=== PATIENT | female | born 1945 | race Caucasian/White ===

== ENCOUNTER 2016-09-04 10:03 | Outpatient (CLI) | payer MEDICARE, BC ==
[2016-09-04 10:55] LABS: Anion Gap 12 mmol/L (10-20); BUN (Urea Nitrogen) 16 mg/dL (9.8-20.1); Calc. Creatinine Clearance 0 mL/min (70-130); Calcium 10.3 mg/dL (7.8-10.44); Carbon Dioxide 28 mmol/L (23-31); Chloride 103 mmol/L (98-107); Estimated GFR-MDRD 42; Glucose 76 mg/dL (83-110); Potassium 4.3 mmol/L (3.5-5.1); Sodium 139 mmol/L (136-145)
== END 2016-09-04 10:04 | disposition home or self-care (01) ==
LOC: MADLAB 10:03
PROVIDERS: ATTEND Internal Medicine Nephrology
DX: N25.81 Secondary hyperparathyroidism of renal origin (principal); N18.3 Chronic kidney disease, stage 3 (moderate); I10 Essential (primary) hypertension
CPT/HCPCS: 36415; 80048; 83970

== ENCOUNTER 2016-09-25 12:01 | Inpatient (IN) | payer MEDICARE, BC ==
[2016-09-25 12:27] LABS: #Basophils 0.1 thou/uL (0.0-0.2); #Eosinphils 0.1 thou/uL (0.0-0.7); #Lymphocytes 2.8 thou/uL (1.20-3.40); #Monocytes 1.6 thou/uL (0.11-0.59); #Neutrophils 15.1 thou/uL (1.40-6.50); %Basophils 0.6 % (0.0-1.0); %Eosinophils 0.3 % (0.0-10.0); %Lymphocytes 14.2 % (21.0-51.0); %Monocytes 7.9 % (0.0-10.0); %Neutrophils 76.9 % (42.0-75.0); Hemoglobin 13.5 g/dL (12.0-16.0); Mean Corpuscular HGB CONC 34.5 g/dL (32.0-36.0); Mean Corpuscular Hemoglobin 31.6 pg (27.0-31.0); Mean Corpuscular Volume 91.6 fl (81.0-99.0); Mean Platelet Volume 8.3 fL (7.4-10.4); Platelet Count 343 thou/uL (130-400); Red Blood Cell (RBC) Count 4.26 mill/uL (4.20-5.40); White Blood Cell (WBC) Count 19.7 thou/uL (4.8-10.8)
[2016-09-25 12:42] LABS: ALT (SGPT) 14 U/L (8-55); AST (SGOT) 16 U/L (5-34); Alkaline Phosphatase 101 U/L (40-150); Anion Gap 14 mmol/L (10-20); BUN (Urea Nitrogen) 10 mg/dL (9.8-20.1); Bilirubin, Total 0.9 mg/dL (0.2-1.2); CK (CPK) 54 U/L (29-168); Calc. Creatinine Clearance 0 mL/min (70-130); Calcium 10.2 mg/dL (7.8-10.44); Carbon Dioxide 27 mmol/L (23-31); Chloride 101 mmol/L (98-107); Estimated GFR-MDRD 50; Globulin 3.7 g/dL (2.4-3.5); Glucose 109 mg/dL (83-110); Magnesium 2.3 mg/dL (1.6-2.6); Phosphorus 2.2 mg/dL (2.3-4.7); Potassium 3.4 mmol/L (3.5-5.1); Protein, Total 7.7 g/dL (6.0-8.3); Sodium 139 mmol/L (136-145)
[2016-09-25 12:46] LABS: CKMB 0.4 ng/mL (0-6.6); Troponin I Less than 0.010 ng/mL (< 0.028)
--- NOTE | 2016-09-25 12:54 | RAD ---
AP CHEST: Indication: Cough. Comparison: 10-19-15 FINDINGS: There are patchy opacities within the right upper lobe and right lower lobe which may reflect change s of multifocal pneumonia. Two view chest radiograph would be helpful for improved localization. Lef t lung is clear. Cardiomediastinal silhouette is within normal limits. No acute osseous abnormality is evident. IMPRESSION: Right upper lobe, right lower lobe patchy opacities. Findings may reflect multifocal pneumonia. Ozzie mmend correlation. Radiographic follow up to resolution is recommended. Two view chest radiograph ma y be helpful for improved characterization. POS: [facility]
[2016-09-25] MEDS ORDERED: Levofloxacin 500 mg/D5W 100 ml Premix Bag ONE (13:07)
[2016-09-25] MEDS ORDERED: Ibuprofen 800 MG TAB ONE (13:12)
[2016-09-25 15:01] VITALS: BMI 27.8
[2016-09-25] MEDS ORDERED: Nitroglycerin 4.9 GM Bottle SL PRN (15:23)
[2016-09-25] MEDS: cloNIDine HCl 0.1 MG TAB PO SCH (21:15)
--- NOTE | 2016-09-26 01:05 | HP ---
CHIEF COMPLAINT: Fatigue. HISTORY OF PRESENT ILLNESS AND HOSPITAL COURSE: Ms. Montgomery is a 71-year-old female with significant history of hypertension, CAD with mild diastolic dysfunction, EF of 55% on 06/18/2013, history of seasonal allergies, dyslipidemia and GERD. The patient reports persistent and cold symptoms for the last 2 days. She went to the clinic on 09/24/2016 with cold symptoms associated with intermittent cough. The patient reports that initially was scant sputum production with febrile sensation. The patient also reports significant weight generalized weakness that she noted for the past 3 days associated with intermittent palpitations of the heart. She reports significant nasal congestion, runny nose and facial pressure. She reports history of seasonal allergies at that time. Patient received a Depo-Medrol shot at the clinic and was recommended close observation. At that time, her heart rate has been in the low 90s with O2 sats at 96%. The patient called back this morning and reporting that she has some shortness of breath intermittently even at the rest, cough is progressive and now with low grade fever. Her heart rate was reported at 99 beats per minute without significant chest pain, pain with breathing, bloody sputum, or heart palpitations. The patient was recommended to proceed to the ER for further evaluation. At the ER , initial evaluation showed vital signs of 178/94, pulse 93, respirations 20, temperature 97.7, O2 saturation 97% at room air. On further evaluation, patient 's lab work showed significant leukocytosis at 19.7 with significant evidence of pneumonia per chest x-ray. EKG was reported to have no significant acute ischemia. Cardiac enzymes are within normal limits and BNP was 163.7. Her O2 sats remains 97% on room air with no evidence of SIRS recorded. Medications given in the ER included oral ibuprofen and Levaquin 500 IV piggyback. Patient was admitted for inpatient management of community acquired pneumonia. When evaluated on the floor, patient appears was febrile at 102.4. Her O2 sat was 93 % at room air with a pulse rate of 92. Patient reports some dyspnea when talking for a while at rest. Denies chest pain, pain with breathing or orthopnea. Family represented by her son and sister were present at the time of evaluation. PAST MEDICAL HISTORY: Hypertension, dyslipidemia, GERD, mild CAD, seasonal allergies, history of rheumatic fever, colonoscopy 2008, echocardiogram 2013 with EF of 55%, mild LVH, mild MR, mild diastolic dysfunction. 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 ALLERGIES: ROBITUSSIN, rash; PNEUMONIA VACCINE, swelling. 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 PAST SURGICAL HISTORY: Partial hysterectomy in 1969, appendectomy 1978, right shoulder rotator cuff repair 2004, tonsillectomy in 1947, cardiac catheterization negative CAD by Dr. Jean Baptiste on 07/2006. PREVIOUS HOSPITALIZATION: Denies. FAMILY HISTORY: Father is . Mother is . Daughters alive, one son alive, one daughter alive. SOCIAL HISTORY: Patient is a nonsmoker, nondrinker, no illicit drug use. MEDICATIONS: Furosemide 40 mg p.o. daily, propranolol ER 80 mg daily, levothyroxine 112 mcg, amlodipine 10 mg p.o. daily, isosorbide mononitrate 30 mg p.o. daily, clonidine 0.1 mg p.o. once a day, atorvastatin 10 mg p.o. daily, aspirin EC 81 mg p.o. daily, Nitrolingual 0.4 spray solution, loratadine 10 mg p.o. daily. REVIEW OF SYSTEMS: General: Reports fever, chills, fatigue and general weakness, loss of appetite. HEENT: Reports runny nose, congestion, and cough. Respiratory: As per HPI. Cardiac: No chest pain, syncope, paroxysmal nocturnal dyspnea, reports WEBBER and intermittent dyspnea at rest. GI: No nausea , vomiting, abdominal pain, diarrhea, constipation. Genitourinary: No dysuria , hematuria, frequency, urgency. Musculoskeletal: No joint pains, joint swelling. Skin: No rashes, no lesions, no ulcers. Neuro: No syncopal episode , murmurs focal paralysis or paraesthesia. Psych: No depression, anxiety, hallucinations. LABORATORY AND X-RAY FINDINGS: White count 19.7, hemoglobin 13.5, hematocrit 39 , platelets 343, neutrophils 76.9, lymphocytes 14.2. Chemistry: Sodium 139, potassium 2.4, chloride 101, carbon dioxide 27, BUN 10, creatinine 1.07, anion gap 14, estimated GFR 50, glucose 109, phosphorus 2.2, magnesium 2.3. Liver function tests within normal limits, alkaline phosphatase 101, creatinine kinase 54, CK-MB 0.4, troponin one less than 0.010, BNP 163.7, albumin 4. Chest x-ray, right upper lobe, right lower lobe, patchy opacities, findings reflect multifocal pneumonia. ASSESSMENT: 1. Community-acquired pneumonia, multifocal. 2. Mild hypoxemia, O2 requiring. 3. Hypertension. 4. Dyslipidemia. 5. Mild CAD. 6. Mild diastolic dysfunction. 6. Gastroesophageal reflux disease. 7. Hypothyroidism. 8. Dyslipidemia. PLAN: The patient is admitted to Medical/Surgical for inpatient management of CAP. We will continue empiric IV antibiotic therapy pending cultures. We will continue home medications as modified per list. O2 to keep O2 sats 94 and above. Gastrointestinal prophylaxis with PPI. DVT prophylaxis with Lovenox. Further recommendations depending on the hospital course, this explained and discussed with the patient in the presence of her family the apparent clinical findings and diagnosis, treatment options and plan of care. All their questions were answered to their satisfaction. We will continue close monitoring of symptoms. At any time, patient showed some respiratory deterioration. We will transfer to tertiary hospital secondary to availability of ICU nor telemetry unit in our hospital. Verbalizes full understanding. CODE STATUS: The patient reports FULL CODE. She states to try CPR and intubation x1, only then discontinued if it is not going to work. This was discussed in the presence of her son and her sister. KARLA
[2016-09-26] MEDS: Levothyroxine Sodium 112 MCG TAB PO SCH (05:59)
[2016-09-26] MEDS: Enoxaparin Sodium 40 MG/0.4 ML SYRINGE SC SCH (06:05)
[2016-09-26 07:57] LABS: Anion Gap 14 mmol/L (10-20); BUN (Urea Nitrogen) 13 mg/dL (9.8-20.1); Calc. Creatinine Clearance 58 mL/min (70-130); Calcium 9.9 mg/dL (7.8-10.44); Carbon Dioxide 25 mmol/L (23-31); Chloride 101 mmol/L (98-107); Estimated GFR-MDRD 46; Glucose 107 mg/dL (83-110); Sodium 136 mmol/L (136-145)
--- NOTE | 2016-09-26 08:10 | RAD ---
TWO VIEWS CHEST HISTORY: Pneumonia. COMPARISON: 09/25/2016 FINDINGS: Two views of the chest show persistent opacification in the right lower lobe and right upper lobe. No additional infiltrates. No pneumothorax. IMPRESSION: Persistent multilobar pneumonia. POS: [facility]
[2016-09-26] MEDS: Atorvastatin Calcium 10 MG TAB PO SCH (08:37)
[2016-09-26] MEDS: Aspirin 81 mg Enteric Coated Tablet PO SCH (08:37)
[2016-09-26] MEDS: Furosemide 40 MG TAB PO SCH (08:37)
[2016-09-26] MEDS: Propranolol HCl LA 80 MG CAP PO SCH ×3 (08:45→14:07)
[2016-09-26] MEDS: Acetaminophen 500 MG TAB PO PRN ×2 (08:46→23:53)
[2016-09-26 08:54] LABS: Hemoglobin 11.6 g/dL (12.0-16.0); Mean Corpuscular HGB CONC 34.9 g/dL (32.0-36.0); Mean Corpuscular Hemoglobin 31.8 pg (27.0-31.0); Mean Corpuscular Volume 91.4 fl (81.0-99.0); Mean Platelet Volume 7.8 fL (7.4-10.4); Platelet Count 265 thou/uL (130-400); Red Blood Cell (RBC) Count 3.65 mill/uL (4.20-5.40); White Blood Cell (WBC) Count 13.5 thou/uL (4.8-10.8)
[2016-09-26 09:02] LABS: #Basophils 0.1 thou/uL (0.0-0.2); #Eosinphils 0.1 thou/uL (0.0-0.7); #Lymphocytes 1.9 thou/uL (1.20-3.40); #Neutrophils 10.2 thou/uL (1.40-6.50); %Basophils 0.6 % (0.0-1.0); %Lymphocytes 14.3 % (21.0-51.0); %Monocytes 7.6 % (0.0-10.0); %Neutrophils 76.4 % (42.0-75.0)
[2016-09-26] MEDS: Ibuprofen 400 MG TAB PO PRN (12:44)
[2016-09-26] MEDS ORDERED: Sodium Chloride 0.9% 1,000 ML IV SCH (12:45)
[2016-09-26] MEDS: Benzonatate 100 MG CAP PO SCH ×2 (14:09→20:18)
[2016-09-26] MEDS: cloNIDine HCl 0.1 MG TAB PO SCH (20:18)
[2016-09-26] MEDS: Promethazine DM 6.25-15mg/5ml 120 ML BOT PO SCH (20:19)
[2016-09-27] MEDS ORDERED: guaiFENesin/Codeine Phosphate 100 mg/10 mg 5 ml UD Cup ONE (00:19)
[2016-09-27] MEDS: guaiFENesin/Codeine Phosphate 100 mg/10 mg 5 ml UD Cup PO PRN ×4 (00:25→17:05)
[2016-09-27] MEDS: Levothyroxine Sodium 112 MCG TAB PO SCH (05:16)
[2016-09-27] MEDS: Enoxaparin Sodium 40 MG/0.4 ML SYRINGE SC SCH (05:16)
--- NOTE | 2016-09-27 07:49 | RAD ---
CHEST 2 VIEWS: Date: 09/27/16 COMPARISON: 09/26/16. HISTORY: Pneumonia. FINDINGS: Stable multilobar pneumonia. Stable cardiac silhouette. No pleural effusion or pneumothorax. IMPRESSION: Multilobar pneumonia. POS: [facility]
[2016-09-27] MEDS: Propranolol HCl LA 80 MG CAP PO SCH (08:30)
[2016-09-27] MEDS: Benzonatate 100 MG CAP PO SCH ×3 (08:30→20:18)
[2016-09-27] MEDS: Atorvastatin Calcium 10 MG TAB PO SCH (08:30)
[2016-09-27] MEDS: Furosemide 40 MG TAB PO SCH (08:30)
[2016-09-27] MEDS: Aspirin 81 mg Enteric Coated Tablet PO SCH (08:30)
[2016-09-27] MEDS: Acetaminophen 500 MG TAB PO PRN (11:51)
[2016-09-27] MEDS: Ibuprofen 400 MG TAB PO PRN (17:05)
[2016-09-27] MEDS: cloNIDine HCl 0.1 MG TAB PO SCH (20:20)
[2016-09-27] MEDS: Promethazine DM 6.25-15mg/5ml 120 ML BOT PO SCH (20:20)
[2016-09-28] MEDS: guaiFENesin/Codeine Phosphate 100 mg/10 mg 5 ml UD Cup PO PRN ×2 (04:24→20:57)
[2016-09-28] MEDS: Ibuprofen 400 MG TAB PO PRN ×2 (04:27→12:14)
[2016-09-28] MEDS: Levothyroxine Sodium 112 MCG TAB PO SCH (05:15)
[2016-09-28] MEDS: Enoxaparin Sodium 40 MG/0.4 ML SYRINGE SC SCH (05:15)
[2016-09-28] MEDS: Aspirin 81 mg Enteric Coated Tablet PO SCH (09:09)
[2016-09-28] MEDS: Atorvastatin Calcium 10 MG TAB PO SCH (09:09)
[2016-09-28] MEDS: Benzonatate 100 MG CAP PO SCH (09:10)
[2016-09-28] MEDS: Acetaminophen 500 MG TAB PO PRN ×2 (09:10→21:02)
[2016-09-28] MEDS: Furosemide 40 MG TAB PO SCH (09:10)
[2016-09-28] MEDS: cloNIDine HCl 0.1 MG TAB PO SCH (20:57)
[2016-09-28] MEDS: Promethazine DM 6.25-15mg/5ml 120 ML BOT PO SCH (21:03)
[2016-09-29] MEDS: Levothyroxine Sodium 112 MCG TAB PO SCH (05:53)
[2016-09-29] MEDS: Enoxaparin Sodium 40 MG/0.4 ML SYRINGE SC SCH (05:53)
[2016-09-29 08:37] LABS: Hemoglobin 11.5 g/dL (12.0-16.0); Mean Corpuscular HGB CONC 34.1 g/dL (32.0-36.0); Mean Corpuscular Hemoglobin 31.3 pg (27.0-31.0); Mean Corpuscular Volume 91.6 fl (81.0-99.0); Mean Platelet Volume 7.2 fL (7.4-10.4); Platelet Count 368 thou/uL (130-400); RBC Distribution Width 11.4 % (11.5-14.5); Red Blood Cell (RBC) Count 3.66 mill/uL (4.20-5.40); White Blood Cell (WBC) Count 9.5 thou/uL (4.8-10.8)
[2016-09-29 08:38] LABS: Band 8 % (5-11); Lymphocytes 14 % (21-51); Metamyelocyte 2 % (0-0); Monocytes 4 % (0-10); Neutrophil 71 % (42-75)
[2016-09-29 08:44] LABS: Anion Gap 14 mmol/L (10-20); BUN (Urea Nitrogen) 11 mg/dL (9.8-20.1); Calc. Creatinine Clearance 66 mL/min (70-130); Calcium 9.9 mg/dL (7.8-10.44); Carbon Dioxide 27 mmol/L (23-31); Chloride 102 mmol/L (98-107); Estimated GFR-MDRD 53; Glucose 101 mg/dL (83-110); Potassium 3.7 mmol/L (3.5-5.1); Sodium 139 mmol/L (136-145)
[2016-09-29] MEDS: Acetaminophen 500 MG TAB PO PRN (09:14)
[2016-09-29] MEDS: Atorvastatin Calcium 10 MG TAB PO SCH (09:14)
[2016-09-29] MEDS: Aspirin 81 mg Enteric Coated Tablet PO SCH (09:15)
[2016-09-29] MEDS: Propranolol HCl LA 80 MG CAP PO SCH (09:15)
[2016-09-29] MEDS: Docusate 100 MG CAP PO PRN (09:15)
[2016-09-29] MEDS: Furosemide 40 MG TAB PO SCH (09:15)
[2016-09-29] MEDS: guaiFENesin/Codeine Phosphate 100 mg/10 mg 5 ml UD Cup PO PRN ×2 (09:17→21:03)
[2016-09-29] MEDS ORDERED: Promethazine DM 6.25-15mg/5ml 120 ML BOT PO PRN (10:09)
--- NOTE | 2016-09-29 11:36 | RAD ---
CHEST PA AND LATERAL: Date: 09/29/16 HISTORY: 71-year-old female, follow-up pneumonia. COMPARISON: 09/27/16 and 09/26/16. FINDINGS: There is some minimal progressive alveolar parenchymal disease in the right upper lobe with stable a ppearing changes in the right lower lobe. The left chest is stable. Heart size is normal. No pleural effusion. IMPRESSION: Persistent right lung infiltrate/pneumonia, slightly progressive alveolar disease in the right upper lobe with stable appearing right lower lobe. Consider short-term follow-up in several weeks to docu ment clearing. POS: [facility]
[2016-09-29] MEDS: cloNIDine HCl 0.1 MG TAB PO SCH (21:02)
[2016-09-30] MEDS: Enoxaparin Sodium 40 MG/0.4 ML SYRINGE SC SCH (06:00)
[2016-09-30] MEDS: Levothyroxine Sodium 112 MCG TAB PO SCH (06:00)
[2016-09-30] MEDS ORDERED: Sodium Chloride 0.9% 1,000 ML BAG ONE (06:17)
[2016-09-30] MEDS: guaiFENesin/Codeine Phosphate 100 mg/10 mg 5 ml UD Cup PO PRN (08:38)
[2016-09-30] MEDS: Docusate 100 MG CAP PO PRN (08:38)
[2016-09-30] MEDS: Furosemide 40 MG TAB PO SCH (08:39)
[2016-09-30] MEDS: Atorvastatin Calcium 10 MG TAB PO SCH (08:40)
[2016-09-30] MEDS: Aspirin 81 mg Enteric Coated Tablet PO SCH (08:40)
[2016-09-30] MEDS: Propranolol HCl LA 80 MG CAP PO SCH (08:41)
[2016-09-30] MEDS ORDERED: Benzonatate 100 MG CAP PO PRN (12:34)
[2016-09-30 12:53] VITALS: BP 174/78; TEMP 98.4
[2016-09-30] MEDS ORDERED: Amoxicillin/Potassium Clav 875 MG TAB PO SCH (21:00)
--- NOTE | 2016-10-01 00:40 | DIS ---
DATE OF ADMISSION: 09/25/2016 DATE OF DISCHARGE: 09/30/2016 ATTENDING: Dr. Lawler REASON FOR ADMISSION: Shortness of breath,palpitations and fatigue. ASSESSMENT: 1. Community acquired pneumonia, multifocal. 2. Mild hypoxemia, O2 requiring, improved. 3. Episodic cough with meals, deemed secondary to gastroesophageal reflux disease, with mild risk of aspiration 4. Fatigue, improving. 5. Palpitations, improved. SECONDARY DIAGNOSES: Hypertension, dyslipidemia, mild coronary artery disease, mild diastolic dysfunction, hypothyroidism, dyslipidemia. CONDITION ON DISCHARGE: Stable. DISPOSITION: Home. HOME MEDICATIONS: 1. Augmentin 875 mg p.o. b.i.d. for 10 days. 2. Benzonatate 200 mg p.o. t.i.d. p.r.n. 3. Guaifenesin with codeine phosphate 10/100 mg per 5 mL, 5 mL p.o. q.6 hours p.r.n. 4. Pantoprazole 40 mg p.o. daily. 5. Aspirin 81 mg p.o. daily. 6. Atorvastatin 10 mg p.o. daily. 7. Furosemide 40 mg p.o. daily. 8. Isosorbide mononitrate 30 mg p.o. b.i.d. 9. Levothyroxine 112 mcg p.o. daily. 10. Nitroglycerin 4 mg spray every 5 minutes p.r.n. for chest pain x3. 11. Propranolol 80 mg p.o. daily. 12. Amlodipine 5 mg p.o. daily. 13. Clonidine 0.1 mg p.o. at bedtime. 14. Acetaminophen 500 mg 1-2 tablets q.6 hours p.r.n. DIET: Low salt, low fat with the additional of extra gravy and sauce every meal. Aspiration precaution. ACTIVITIES: Ad yolanda. Avoid strenuous activities. Avoid extreme humidity or cold temperatures/environment. FOLLOW UP: 1. With Dr. Lawler at [facility] in 1-2 weeks or sooner with concerns. 2. Repeat chest x-ray in 3-4 weeks as outpatient to confirm resolution of pneumonia. 3. ER warnings. HISTORY OF PRESENT ILLNESS AND HOSPITAL COURSE: Ms. Montgomery is a very pleasant 71-year-old female with significant history of CAD, hypertension, mild diastolic dysfunction with EF of 55% on 06/18/2013,History of seasonal allergies, dyslipidemia, and chronic GERD. The patient presented with cold symptoms for the last 2 days fatigue and worsening intermittent cough. Associated symptoms include intermittent shortness of breath that become progressive. This was associated with severe fatigue and intermittent palpitations of the heart and feverish sensation. She reports worsening symptoms over the past 24 hours since she was seen from the clinic. On 2016, the patient had a fever of 102, thus she went to the ER for further evaluation. On initial workup in the ER, patient has significant leukocytosis of 19,000 with some left shift. Chest x-ray showed evidence of multifocal right lower and upper lobe pneumonia. Her O2 sats initially was 96% on room air. The patient was subsequently admitted for inpatient management of community-acquired pneumonia. She was treated empirically with Levaquin IV, pending cultures. Patient has competed a 5-day course of the IV antibiotic. Over the course the patient had intermittent febrile episode of Low grade fever, with a T-max of 100.4. The patient had significant improvement over the last 5 days of hospital course in a very slow manner. She required continuous O2 supplement for mild hypoxia that has eventually improved. She was weaned off of the oxygen with no issues. On serial lab exams and x-rays, the patient's leukocytosis trended down to normal limits. Her serial chest x-rays remained stable with no evidence of worsening findings. Her blood cultures came back negative. Influenza was ruled out with rapid swab test. Patient was noted to have some coughing when eating . I was told that she has these symptoms been going on for a while, thus a Speech Therapy evaluation was done. Per ST judd, the patient has a delayed swallowing with a mild increased risk for aspiration. Given the history of chronic GERD,aspiration precautionary measures was reviewed with the patient. She was advised to have extra sauce and gravy to add per meal She was also given pamphlet for strategy for safe swallowing. She was also found to have a dry mouth. Thus other than water, lemon formula was given by ST to increase salivation. I also reviewed this with patient and prior to discharge, who verbalizes full understanding. On 09/30/2016, she was adamant to go home. She has been febrile free for the last 48 hours prior to discharge. Patient reports marked improvement with overall functional status.She is able to move around with improved fatigue. There was no significant chest pain, pain with breathing, sputum production, dyspnea on exertion or paroxysmal nocturnal dyspnea reported. She states she still cough, but milder. On the day of discharge, patient is able to move around and go to the bathroom and shower independently, but she was still noticed to have some general weakness. She was deemed to benefit for skilled rehabilitation prior to going back to the home environment, but patient declined. She states that she has some help at home with her 2 sisters were present in the room to pick her up supported her for this. thus discharged. Patient was discharged on oral antibiotic that she expect to finish for 10-day course. She was advised to avoid strenuous activities while on convalescent period. Vital signs prior to discharge, blood pressure 138/65, temperature 98.4, pulse 81, respirations 20, O2 sats 95% at room air, weight 188 pounds and 9 ounces. Time spent on this discharge, 32 minutes in examining the patient and coordinating care. KARLA
== END 2016-09-30 14:00 | disposition home or self-care (01) | DRG 194 ==
LOC: MADERS 12:01 → UNDOADMIN 12:02 → MADMS 12:02 → UNDOADMIN 13:29
PROVIDERS: ADMIT Family Medicine; ATTEND Family Medicine
DX: J18.1 Lobar pneumonia, unspecified organism (principal); I50.32 Chronic diastolic (congestive) heart failure; I11.0 Hypertensive heart disease with heart failure; R09.02 Hypoxemia; K21.9 Gastro-esophageal reflux disease without esophagitis; E03.9 Hypothyroidism, unspecified; E78.5 Hyperlipidemia, unspecified; I25.10 Atherosclerotic heart disease of native coronary artery without angina pectoris; J30.2 Other seasonal allergic rhinitis
CPT/HCPCS: 36415; 71010; 71020; 80048; 80053; 82553; 83735; 83880; 84100; 84484; 85025; 87040; 93005; 96365; A4216; G8996-GN-CI; G8997-GN-CI; G8998-GN-CI; J1650; J1956; J7050

== ENCOUNTER 2016-10-11 12:10 | Outpatient (CLI) | payer MEDICARE, BC ==
--- NOTE | 2016-10-11 14:26 | RAD ---
CHEST TWO VIEWS HISTORY: Pneumonia. Followup. COMPARISON: 09/29/2016 FINDINGS: The cardiac silhouette and pulmonary vasculature are unremarkable. Parenchymal opacities at the rig ht upper lobe and right posterior lung base are less pronounced than on the prior study, more focal and smaller. The left lung is well inflated. IMPRESSION: Partial resolution of right upper and lower lobe infiltrates with mild residual atelectasis. No new abnormalities are demonstrated. POS: [facility]
== END 2016-10-11 12:11 | disposition home or self-care (01) ==
LOC: MADLABBHPM 12:10
PROVIDERS: ATTEND Family Medicine
DX: J18.9 Pneumonia, unspecified organism (principal); J98.11 Atelectasis
CPT/HCPCS: 71020

== ENCOUNTER 2016-11-15 11:20 | Outpatient (CLI) | payer MEDICARE, BC ==
[2016-11-15 12:26] LABS: Anion Gap 17 mmol/L (10-20); BUN (Urea Nitrogen) 20 mg/dL (9.8-20.1); Calc. Creatinine Clearance 0 mL/min (70-130); Carbon Dioxide 21 mmol/L (23-31); Chloride 105 mmol/L (98-107); Estimated GFR-MDRD 50; Glucose 85 mg/dL (83-110); Potassium 4.2 mmol/L (3.5-5.1); Sodium 139 mmol/L (136-145)
--- NOTE | 2016-11-15 13:16 | RAD ---
PA AND LATERAL CHEST: History: Pneumonia. FINDINGS: Comparison is made with exam of 10-11-16. There has been interval resolution of the right sided pneumonia since the previous study. No focal a reas of consolidation, pneumothoraces or pleural effusions are seen. IMPRESSION: No acute process. POS: [facility]
== END 2016-11-15 11:21 | disposition home or self-care (01) ==
LOC: MADLABBHPM 11:20
PROVIDERS: ATTEND Internal Medicine Nephrology
DX: J18.9 Pneumonia, unspecified organism (principal); I12.9 Hypertensive chronic kidney disease with stage 1 through stage 4 chronic kidney disease, or unspecified chronic kidney disease; N18.3 Chronic kidney disease, stage 3 (moderate); N25.81 Secondary hyperparathyroidism of renal origin
CPT/HCPCS: 36415; 71020; 80048; 83970

== ENCOUNTER 2017-01-24 10:26 | Outpatient (CLI) | payer MEDICARE, BC ==
[2017-01-24 10:44] LABS: #Basophils 0.1 thou/uL (0.0-0.2); #Eosinphils 0.1 thou/uL (0.0-0.7); #Lymphocytes 2.3 thou/uL (1.20-3.40); #Monocytes 0.5 thou/uL (0.11-0.59); #Neutrophils 3.8 thou/uL (1.40-6.50); %Eosinophils 2.1 % (0.0-10.0); %Lymphocytes 33.3 % (21.0-51.0); %Monocytes 7.2 % (0.0-10.0); %Neutrophils 56.3 % (42.0-75.0); Mean Corpuscular HGB CONC 32.7 g/dL (32.0-36.0); Mean Corpuscular Hemoglobin 30.9 pg (27.0-31.0); Mean Corpuscular Volume 94.4 fl (81.0-99.0); Mean Platelet Volume 8.1 fL (7.4-10.4); Platelet Count 285 thou/uL (130-400); RBC Distribution Width 11.3 % (11.5-14.5); White Blood Cell (WBC) Count 6.8 thou/uL (4.8-10.8)
[2017-01-24 11:03] LABS: ALT (SGPT) 15 U/L (8-55); AST (SGOT) 15 U/L (5-34); Albumin 3.9 g/dL (3.4-4.8); Alkaline Phosphatase 84 U/L (40-150); Anion Gap 11 mmol/L (10-20); BUN (Urea Nitrogen) 17 mg/dL (9.8-20.1); Bilirubin, Total 0.6 mg/dL (0.2-1.2); Calc. Creatinine Clearance 0 mL/min (70-130); Carbon Dioxide 28 mmol/L (23-31); Cardiac Risk 4.2 (Less than 4.5); Chloride 108 mmol/L (98-107); Cholesterol 193 mg/dl (< 200 Desired); Estimated GFR-MDRD 49; Globulin 3.3 g/dL (2.4-3.5); Glucose 98 mg/dL (83-110); HDL Cholesterol 46 mg/dL (>60 Neg Risk); LDL Cholesterol, Calculated 109 mg/dL; Magnesium 2.4 mg/dL (1.6-2.6); Potassium 4.5 mmol/L (3.5-5.1); Protein, Total 7.2 g/dL (6.0-8.3); Sodium 142 mmol/L (136-145); Triglycerides 190 mg/dL (Less than 150)
[2017-01-24 17:09] LABS: T4 9.3 ug/dL (4.87-11.72)
== END 2017-01-24 10:27 | disposition home or self-care (01) ==
LOC: MADLAB 10:26
PROVIDERS: ATTEND Physician Assistant Medical
DX: E78.2 Mixed hyperlipidemia (principal); E03.9 Hypothyroidism, unspecified; I10 Essential (primary) hypertension; R55 Syncope and collapse
CPT/HCPCS: 36415; 80053; 80061; 83735; 84436; 84443; 84481; 85025

== ENCOUNTER 2017-05-20 14:04 | Outpatient (CLI) | payer MEDICARE, BC ==
--- NOTE | 2017-05-20 14:40 | RAD ---
PA AND LATERAL CHEST: Date: 05-20-17 History: Acute bronchitis. Comparison: 11-15-16 FINDINGS: Cardiac silhouette and pulmonary vasculature are within normal limits. The lungs are clear. Linear de nsities in the right lung base have improved likely related to resolution of atelectasis. A screw ove rlies the right humeral head. No other interval change. IMPRESSION: No acute cardiopulmonary process. POS: [facility]
== END 2017-05-20 14:05 | disposition home or self-care (01) ==
LOC: MADRAD 14:04
PROVIDERS: ATTEND Family Medicine
DX: J20.9 Acute bronchitis, unspecified (principal)
CPT/HCPCS: 71046

== ENCOUNTER 2017-09-08 11:44 | Outpatient (CLI) | payer MEDICARE, BC | END 2017-09-08 11:45 | disposition home or self-care (01) | LOC: MADLAB 11:44 | PROVIDERS: ATTEND Otolaryngology Otolaryngic Allergy | DX: E83.52 Hypercalcemia (principal); D35.1 Benign neoplasm of parathyroid gland | CPT/HCPCS: 36415; 82310; 83970 ==

== ENCOUNTER 2017-12-08 15:04 | Outpatient (CLI) | payer MEDICARE, BC ==
[2017-12-09 02:34] LABS: Follow-up Chemistry Comp? YES; Follow-up Result - Chemistry REPORT FAXED
== END 2017-12-08 15:05 | disposition home or self-care (01) ==
LOC: MADLAB 15:04
PROVIDERS: ATTEND Otolaryngology Plastic Surgery within the Head & Neck
DX: D35.1 Benign neoplasm of parathyroid gland (principal); E05.90 Thyrotoxicosis, unspecified without thyrotoxic crisis or storm; E83.52 Hypercalcemia
CPT/HCPCS: 36415; 82310; 83970